=== PATIENT | male | born 1935 | race Caucasian/White ===

== ENCOUNTER 2017-08-09 23:34 | Emergency (ER) | payer MEDICARE ==
[2017-08-10 02:01] LABS: APPEARANCE CLEAR (CLEAR); BILIRUBIN NEGATIVE (NEGATIVE); COLOR YELLOW (YELLOW); GLUCOSE NEGATIVE (NEGATIVE); KETONE SMALL mg/dL (NEGATIVE); NITRITE NEGATIVE (NEGATIVE); PROTEIN NEGATIVE (NEGATIVE); SPECIFIC GRAVITY 1.015 (1.005-1.020); UROBILINOGEN NORMAL (NORMAL)
[2017-08-10 02:11] LABS: BASOPHILS 0.2 % (0-2); EOSINOPHILS 4.3 % (0-7); HEMATOCRIT 28.8 % (42.0-54.0); HEMOGLOBIN 9.8 g/dL (13.5-17.5); IMMATURE GRANULOCYTES 0.3 % (0-5); LYMPHOCYTES 33.5 % (15-50); MCH 34.4 pg (26.0-34.0); MCV 101.1 fL (80.0-100.0); MEAN PLATELET VOLUME 8.2 fL (7.4-10.4); MONOCYTES 10.3 % (2-11); NEUTROPHILS 51.4 % (40-80); PLATELET COUNT 376 10x3/uL (130-400); RBC 2.85 10x6/uL (4.20-6.10); RDW 15.6 % (11.5-14.5)
[2017-08-10 02:25] LABS: ANION GAP 14.5 mmol/L (8-16); BILIRUBIN - TOTAL 0.43 mg/dL (0.2-1.3); CALCIUM 8.4 mg/dL (8.5-10.1); CARBON DIOXIDE 26.1 mmol/L (21.0-32.0); CREATININE - SERUM 1.5 mg/dL (0.6-1.3); POTASSIUM - SERUM 4.6 mmol/L (3.5-5.1); PROTEIN - SERUM 7.4 g/dL (6.4-8.2)
== END 2017-08-10 03:05 | disposition home or self-care (01) ==
LOC: D.ER 23:34
PROVIDERS: Physician Assistant
DX: R50.9 Fever, unspecified (principal); R68.89 Other general symptoms and signs; R05 Cough; Z86.2 Personal history of diseases of the blood and blood-forming organs and certain disorders involving the immune mechanism; E11.9 Type 2 diabetes mellitus without complications; Z85.46 Personal history of malignant neoplasm of prostate; Z85.850 Personal history of malignant neoplasm of thyroid

== ENCOUNTER 2018-05-18 10:34 | Emergency (ER) | payer MEDICARE ==
[~2018-05-18] VITALS: Ht 162.6 cm; Wt 72.7 kg
[2018-05-18 10:36] VITALS: Ht 162.6 cm; Wt 72.7 kg
[2018-05-18] MEDS ORDERED: GLUCOTROL ER2.5 MG (10:37)
[2018-05-18] MEDS ORDERED: RIOMET500 MG/5 M (10:37)
[2018-05-18] MEDS ORDERED: THYROID MEDICATION (10:37)
[2018-05-18 11:29] LABS: HEMOGLOBIN 11.6 g/dL (13.5-17.5); MCH 35.2 pg (26.0-34.0); MCHC 34.1 g/dL (31.0-37.0); MEAN PLATELET VOLUME 9.1 fL (7.4-10.4); PLATELET COUNT 301 10x3/uL (130-400); RDW 16.5 % (11.5-14.5); WBC 5.5 10x3/uL (4.8-10.8)
[2018-05-18 11:34] LABS: ALBUMIN 3.9 g/dL (3.4-5.0); ALKALINE PHOSPHATASE 71 U/L (46-116); ALT (SGPT) 36 U/L (10-68); BILIRUBIN - TOTAL 0.68 mg/dL (0.2-1.3); CALC OSMOLALITY 283 mosm/kg (275-300); CARBON DIOXIDE 24.5 mmol/L (21.0-32.0); CHLORIDE - SERUM 103 mmol/L (98-107); CREATININE - SERUM 1.5 mg/dL (0.6-1.3); POTASSIUM - SERUM 4.2 mmol/L (3.5-5.1); PROTEIN - SERUM 7.1 g/dL (6.4-8.2); SODIUM 139 mmol/L (136-145); UREA NITROGEN 19 mg/dL (7-18); eGFR NON AFRICAN AMERICAN 48 mL/min (90-120)
[2018-05-18 11:35] LABS: GLUCOSE 175 mg/dL (74-106)
[2018-05-18 11:48] LABS: APTT 27.3 SECONDS (22.8-39.4); INR 1.11 (0.85-1.17); PROTIME 13.8 SECONDS (11.6-15.0)
[2018-05-18 11:49] LABS: CKMB 2.4 U/L (0.0-3.6); CREATINE KINASE 126 UL (21-232); TROPONIN-I 0.054 ng/mL (0.000-0.060)
[2018-05-18 12:18] LABS: EOSINOPHILS 5 % (0-7); LYMPHOCYTES 58 % (15-50); MONOCYTES 5 % (2-11); NEUTROPHILS 25 % (40-80); PLATELET ESTIMATE NORMAL
[2018-05-18 13:14] VITALS: BP 146/79
[2018-05-19 08:16] LABS: FOLATE (FOLIC ACID) - SERUM >20.0 ng/mL (>3.0)
== END 2018-05-18 13:16 | disposition home or self-care (01) ==
LOC: D.ER 10:34
PROVIDERS: Emergency Medicine
DX: Z86.79 Personal history of other diseases of the circulatory system (principal); D53.9 Nutritional anemia, unspecified